=== PATIENT | male | born 2000 | race American Indian/Alaskan Native ===

== ENCOUNTER 2023-02-09 09:30 | Day surgery (SDC) | payer SELFPAY ==
[2023-02-09 09:51] LABS: Absolute Lymphocytes (CBC) 1.1 K/uL (0.7-4.9); Hematocrit 46.2 % (39.6-49.0); Lymphocytes % 8.9 % (15.3-44.8); MCV 86.6 fL (80-100); MPV 9.3 fL (7.6-11.3); RBC Red Blood Cell Count 5.34 M/uL (4.33-5.43)
[2023-02-09] MEDS ORDERED: NA CHLORIDE 0.9% 1,000 ML ONE ×3 (10:05→16:38)
[2023-02-09] MEDS ORDERED: DICYCLOMINE HCL 20 MG/2 ML AMP IM ONE (10:05)
[2023-02-09] MEDS ORDERED: ONDANSETRON 4 MG/2 ML VIAL ONE ×2 (10:05→14:31)
[2023-02-09] MEDS ORDERED: FAMOTIDINE 20 MG/2 ML VIAL IV ONE (10:05)
[2023-02-09 10:16] LABS: ALT/SGPT 79 U/L (16-61); AST/SGOT 23 U/L (15-37); Albumin 4.4 g/dL (3.4-5.0); Alkaline Phosphatase 130 U/L (45-117); BUN Blood Urea Nitrogen 13 mg/dL (7-18); Bicarbonate 23 mEq/L (21-32); Bilirubin Total 1.3 mg/dL (0.2-1.0); Glomerular Filtration Rate 100 ml/min (=/>90); Glucose Level 149 mg/dL (74-106); Lipase 35 U/L (13-75); Potassium 3.4 mEq/L (3.5-5.1); Protein, Total 8.1 g/dL (6.4-8.2); Sodium Level 135 mEq/L (136-145)
--- NOTE | 2023-02-09 10:18 | RAD REPORT ---
EXAM DESCRIPTION: CTAbdomen Pelvis W Contrast - 02/09/2023 10:09 am CLINICAL HISTORY: Abdominal pain. ABD PAIN COMPARISON: No comparisons TECHNIQUE: Biphasic CT imaging of the abdomen and pelvis was performed with 100 ml non-ionic IV cont rast. All CT scans are performed using dose optimization technique as appropriate and may include automated exposure control or mA/KV adjustment according to patient size. FINDINGS: The lung bases are clear. The liver demonstrates fatty liver. Spleen, pancreas, adrenal glands and kidneys are within normal li mits. No bowel obstruction, free air, free fluid or abscess. The appendix is dilated to 13 mm. No evidenc e of significant lymphadenopathy. No suspicious bony findings. IMPRESSION: The appendix appears fluid filled and dilated to 13 mm, suspicious for acute appendiciti s.
[2023-02-09 10:30] LABS: Barbiturates NEGATIVE (NEGATIVE); Benzodiazepines NEGATIVE (NEGATIVE); Cocaine NEGATIVE (NEGATIVE); METHAMPHETAM POSITIVE (NEGATIVE); Methadone NEGATIVE (NEGATIVE); Opiates NEGATIVE (NEGATIVE); Phencyclidine NEGATIVE (NEGATIVE); THC Cannibis POSITIVE (NEGATIVE)
--- NOTE | 2023-02-09 11:08 | ER ---
Nurse's Notes [facility] Name: Donell Mota Age: 22 yrs Sex: Male : 2000 Arrival Date: 02/09/2023 Time: 09:30 Bed 19 Private MD: Diagnosis: Unspecified acute appendicitis Presentation: 02/09 09:25 Chief complaint: EMS states: PATIENT CALLED EMS FOR ABD PAIN STARTED AT 0530 AND N/V. db DIARRHEA X1 YEST. METH USE MONDAY THROUGH MONDAY. 1 32 OZ BEER YESTERDAY. Coronavirus screen: Client denies travel out of the [place] in the last 14 days. At this time, the client does not indicate any symptoms associated with coronavirus-19. Ebola Screen: Patient negative for fever greater than or equal to 101.5 degrees Fahrenheit, and additional compatible Ebola Virus Disease symptoms Patient denies exposure to infectious person. Patient denies travel to an Ebola-affected area in the 21 days before illness onset. No symptoms or risks identified at this time. Initial Sepsis Screen: Does the patient meet any 2 criteria? No. Patient's initial sepsis screen is negative. Does the patient have a suspected source of infection? No. Patient's initial sepsis screen is negative. Risk Assessment: Do you want to hurt yourself or someone else? Patient reports no desire to harm self or others. Onset of symptoms was February 09, 2023. 09:25 Method Of Arrival: EMS: [facility] db 09:25 Acuity: ROSSY 3 db Triage Assessment: 09:39 General: Appears uncomfortable, Behavior is cooperative, anxious. Pain: Complains of db pain in abdomen. Neuro: Level of Consciousness is awake, alert, obeys commands, Oriented to person, place, time, situation. GI: Abdomen is flat, non-distended. : No deficits noted. No signs and/or symptoms were reported regarding the genitourinary system. Historical: - Allergies: 09:39 No Known Allergies; db - Home Meds: 09:39 None [Active]; db - PMHx: 09:39 None; db - Immunization history:: Adult Immunizations unknown. - Social history:: Smoking status: Patient denies any tobacco usage or history of. Patient uses alcohol, on a daily basis. admits to "couple of beers" a day. street drugs, marijuana, Methamphetamine (Meth). Screenin:[address] [facility] ED Fall Risk Assessment (Adult) History of falling in the last 3 months, db including since admission No falls in past 3 months (0 pts) Confusion or Disorientation No (0 pts) Intoxicated or Sedated No (0 pts) Impaired Gait No (0 pts) Mobility Assist Device Used No (0 pt) Altered Elimination No (0 pt) Score/Fall Risk Level 0 - 2 = Low Risk Oriented to surroundings, Maintained a safe environment. Abuse screen: Denies threats or abuse. Denies injuries from another. Nutritional screening: No deficits noted. Tuberculosis screening: No symptoms or risk factors identified. Assessment: 09:45 Reassessment: Patient appears in no apparent distress at this time. Patient and/or db family updated on plan of care and expected duration. Pain level reassessed. Patient is alert, oriented x 3, equal unlabored respirations, skin warm/dry/pink. General: Appears in no apparent distress. comfortable, Behavior is calm, cooperative. Neuro: Level of Consciousness is awake, alert, obeys commands, Oriented to person, place, time, situation. GI: Bowel sounds Abd is soft Abdomen is tender to palpation X 4 quads. Reports vomiting. 10:45 Reassessment: Patient appears in no apparent distress at this time. Patient and/or db family updated on plan of care and expected duration. Pain level reassessed. Patient states feeling better. Patient states symptoms have improved. 13:12 Reassessment: Patient appears in no apparent distress at this time. Patient and/or db family updated on plan of care and expected duration. Pain level reassessed. Patient is alert, oriented x 3, equal unlabored respirations, skin warm/dry/pink. Patient states feeling better. Patient states symptoms have improved. Vital Signs: 09:25 BP 154 / 88; Pulse 65; Resp 16; Temp 98.1(TE); Pulse Ox 100% ; Weight 70.31 kg; Height db 5 ft. 4 in. ; Pain 5/10; 09:30 BP 140 / 93; Pulse 70; Resp 16; Pulse Ox 100% on R/A; db 10:56 BP 133 / 101; Pulse 62; Resp 16; Pulse Ox 98% on R/A; db 12:40 BP 115 / 77; Pulse 44; Resp 16; Pulse Ox 99% on R/A; db 13:00 BP 122 / 76; Pulse 66; Resp 16; Pulse Ox 100% on R/A; db 09:25 Body Mass Index 26.61 (70.31 kg, 162.56 cm) db 09:25 Pain Scale: Adult db ED Course: 09:31 Patient arrived in ED. em1 09:31 Ramirez Carrasco NP is PHCP. pm1 09:31 Scott Hernandez DO is Attending Physician. pm1 09:35 Vianca Lares RN is Primary Nurse. db 09:39 Triage completed. db 09:39 Arm band placed on Patient placed in an exam room. db 10:05 Inserted saline lock: 20 gauge in right antecubital area, using aseptic technique. aw1 10:05 Initial lab(s) drawn, by me, sent to lab. aw1 10:05 Urine collected: clean catch specimen, lisa colored. aw1 10:11 CT Abd/Pelvis - IV Contrast Only In Process Unspecified. EDMS 11:05 Lorenzo Cárdenas is Hospitalizing Provider. pm1 13:13 Bed in low position. Call light in reach. Side rails up X 1. Provided Education on: db ADMISSION AND SURGERY. 13:13 No provider procedures requiring assistance completed. Patient admitted, IV remains in db place. Administered Medications: 09:50 Drug: NS 0.9% IV 1000 ml Route: IV; Rate: 1 bolus; Site: right antecubital; db 12:30 Follow up: IV Status: Completed infusion; IV Intake: 1000ml db 09:50 Drug: Dicyclomine IM 20 mg Route: IM; Site: right deltoid; db 12:45 Follow up: Response: No adverse reaction db 09:55 Drug: Famotidine IVP 20 mg Route: IVP; Site: right antecubital; db 13:15 Follow up: Response: No adverse reaction db 09:55 Drug: Ondansetron IVP 4 mg Route: IVP; Site: right antecubital; db 13:15 Follow up: Response: No adverse reaction db 09:55 CANCELLED (Patient not given previously ordered zofran yett): Ondansetron IVP 4 mg IVP pm1 once; over 2 minutes 11:45 Drug: Piperacillin-Tazobactam IVPB 3.375 grams Route: IVPB; Infused Over: 60 mins; db Site: right antecubital; 12:15 Follow up: IV Status: Completed infusion; IV Intake: 100ml db 11:53 Drug: NS 0.9% IV 1000 ml Route: IV; Rate: 100 ml/hr; Site: right antecubital; db 13:14 Follow up: IV Status: Infusion continued upon admission db Medication: 13:14 VIS not applicable for this client. db Intake: 12:15 IV: 100ml; Total: 100ml. db 12:30 IV: 1000ml; Total: 1100ml. db Outcome: 11:07 Decision to Hospitalize by Provider. pm1 13:13 Admitted to OR accompanied by nurse, via wheelchair, with chart. db 13:13 Condition: stable 13:13 Instructed on the need for admit. 13:14 Patient left the ED. db Signatures: Dispatcher [employer] Johnnie Kinney em1 Ramirez Carrasco, DIE CAST SUPERVISOR DIE CAST SUPERVISOR pm1 Vianca Lares, MIGUEL A RN db Hyacinth Mckeon aw1 Corrections: (The following items were deleted from the chart) 13:12 10:45 Reassessment: Patient appears in no apparent distress at this time. Patient db and/or family updated on plan of care and expected duration. Pain level reassessed. Patient is alert, oriented x 3, equal unlabored respirations, skin warm/dry/pink. Patient states feeling better. Patient states symptoms have improved. db
--- NOTE | 2023-02-09 11:08 | EDPHYS ---
Physician Documentation [facility] Name: Donell Mota Age: 22 yrs Sex: Male : 2000 Arrival Date: 02/09/2023 Time: 09:30 Bed 19 Private MD: ED Physician Scott Hernandez HPI: 02/09 09:47 This 22 yrs old Male presents to ER via EMS with complaints of Abdominal Pain, pm1 Nausea/Vomiting/Diarrhea. 09:47 The patient presents with abdominal pain in the periumbilical area. Onset: The pm1 symptoms/episode began/occurred this morning, at 05:30. The symptoms do not radiate. Associated signs and symptoms: Pertinent positives: nausea, vomiting, and diarrhea, Pertinent negatives: chest pain, dysuria, fever, shortness of breath. The symptoms are described as sharp. Modifying factors: The symptoms are alleviated by nothing, the symptoms are aggravated by nothing. Severity of pain: in the emergency department the pain is actually worse. The patient has not experienced similar symptoms in the past. The patient has not recently seen a physician. Patient has been using methampthamines for the past three days. Diarrhea present yesterday. Nausea vomiting onset today at 0530, contents bilous. Has not been eating and drinking well since using drugs this week. Patient last ETOH consumption yesterday, one beer. 09:47 Patient does not drink every day. No history of alcohol withdrawl. pm1 Historical: - Allergies: 09:39 No Known Allergies; db - Home Meds: 09:39 None [Active]; db - PMHx: 09:39 None; db - Immunization history:: Adult Immunizations unknown. - Social history:: Smoking status: Patient denies any tobacco usage or history of. Patient uses alcohol, on a daily basis. admits to "couple of beers" a day. street drugs, marijuana, Methamphetamine (Meth). ROS: 09:47 Constitutional: Negative for fever, chills, and weight loss, Cardiovascular: Negative pm1 for chest pain, palpitations, and edema, Respiratory: Negative for shortness of breath, cough, wheezing, and pleuritic chest pain. 09:47 Back: Negative for injury and pain, : Negative for injury, bleeding, discharge, and swelling, MS/Extremity: Negative for injury and deformity, Skin: Negative for injury, rash, and discoloration, Neuro: Negative for headache, weakness, numbness, tingling, and seizure. 09:47 Abdomen/GI: Positive for abdominal pain, nausea, vomiting, and diarrhea, Negative for constipation. 09:47 All other systems are negative. Exam: 09:47 Constitutional: This is a well developed, well nourished patient who is awake, alert, pm1 and in no acute distress. Head/Face: Normocephalic, atraumatic. 09:47 Back: No spinal tenderness. No costovertebral tenderness. Full range of motion. Skin: Warm, dry with normal turgor. Normal color with no rashes, no lesions, and no evidence of cellulitis. MS/ Extremity: Pulses equal, no cyanosis. Neurovascular intact. Full, normal range of motion. 09:47 Cardiovascular: Exam negative for acute changes, Rate: normal, Rhythm: regular, Pulses: no pulse deficits are appreciated. 09:47 Respiratory: Exam negative for acute changes, respiratory distress, shortness of breath. 09:47 Abdomen/GI: Inspection: obese Palpation: soft, in all quadrants, mild abdominal tenderness, in the left lower quadrant. 09:47 Neuro: Exam negative for acute changes, Orientation: is normal, Mentation: is normal, Motor: is normal, moves all fours. Vital Signs: 09:25 BP 154 / 88; Pulse 65; Resp 16; Temp 98.1(TE); Pulse Ox 100% ; Weight 70.31 kg; Height db 5 ft. 4 in. ; Pain 5/10; 09:30 BP 140 / 93; Pulse 70; Resp 16; Pulse Ox 100% on R/A; db 10:56 BP 133 / 101; Pulse 62; Resp 16; Pulse Ox 98% on R/A; db 12:40 BP 115 / 77; Pulse 44; Resp 16; Pulse Ox 99% on R/A; db 13:00 BP 122 / 76; Pulse 66; Resp 16; Pulse Ox 100% on R/A; db 09:25 Body Mass Index 26.61 (70.31 kg, 162.56 cm) db 09:25 Pain Scale: Adult db MDM: 09:32 Patient medically screened. pm1 09:53 Data reviewed: vital signs. pm1 10:28 I considered the following discharge prescriptions or medication management in the pm1 emergency department Medications were administered in the Emergency Department. See SEP. 10:28 Historians other than the Patient: EMS: Regarding drug abuse history, presentation of pm1 illness and symptoms at scene . 10:32 Counseling: I had a detailed discussion with the patient and/or guardian regarding: the pm1 historical points, exam findings, and any diagnostic results supporting the discharge/admit diagnosis, lab results, radiology results, the need for further work-up and treatment in the hospital. 11:03 Management of patient was discussed with the following: Regulatory And Compliance Technician: Dr Graham. NPO, pm1 antibiotics and admit to hospitalist. 11:03 Care significantly affected by the following chronic conditions: drug abuse. pm1 11:03 Care significantly affected by the following Social Determinants of Health: Poor access pm1 to healthcare and/or lack of insurance. 11:10 ED course: Patient's pain improved with medication given in the ER but reports still pm1 present in the umbilical area. 11:10 Differential diagnosis: appendicitis, cholecystitis, Cholelithiasis, non-specific abd pm1 pain, pancreatitis, drug abuse. 11:12 Management of patient was discussed with the following: Hospitalist: Dr Cárdenas. Will pm1 see the patient. 02/09 09:33 Order name: CBC with Diff; Complete Time: 09:53 pm02/09 09:33 Order name: CMP; Complete Time: 10:33 pm02/09 09:33 Order name: Lipase; Complete Time: 10:33 pm02/09 09:33 Order name: Acetaminophen; Complete Time: 10:33 pm02/09 09:33 Order name: ETOH Level; Complete Time: 10:10 pm02/09 09:33 Order name: Salicylate; Complete Time: 10:33 pm02/09 09:33 Order name: Urine Drug Screen; Complete Time: 10:31 pm02/09 09:33 Order name: CT Abd/Pelvis - IV Contrast Only; Complete Time: 10:20 pm02/09 09:33 Order name: IV Saline Lock; Complete Time: 10:05 pm02/09 09:33 Order name: Labs collected and sent; Complete Time: 10:05 pm02/09 11:15 Order name: NPO; Complete Time: 11:53 pm1 Administered Medications: 09:50 Drug: NS 0.9% IV 1000 ml Route: IV; Rate: 1 bolus; Site: right antecubital; db 12:30 Follow up: IV Status: Completed infusion; IV Intake: 1000ml db 09:50 Drug: Dicyclomine IM 20 mg Route: IM; Site: right deltoid; db 12:45 Follow up: Response: No adverse reaction db 09:55 Drug: Famotidine IVP 20 mg Route: IVP; Site: right antecubital; db 13:15 Follow up: Response: No adverse reaction db 09:55 Drug: Ondansetron IVP 4 mg Route: IVP; Site: right antecubital; db 13:15 Follow up: Response: No adverse reaction db 09:55 CANCELLED (Patient not given previously ordered zofran yett): Ondansetron IVP 4 mg IVP pm1 once; over 2 minutes 11:45 Drug: Piperacillin-Tazobactam IVPB 3.375 grams Route: IVPB; Infused Over: 60 mins; db Site: right antecubital; 12:15 Follow up: IV Status: Completed infusion; IV Intake: 100ml db 11:53 Drug: NS 0.9% IV 1000 ml Route: IV; Rate: 100 ml/hr; Site: right antecubital; db 13:14 Follow up: IV Status: Infusion continued upon admission db Disposition: 09:48 PA/AUTOMOTIVE GLAZIER's history reviewed, patient interviewed, and examined. HPI: 22-year-old male with ms3 no past medical history presents via [facility] for abdominal pain that began this morning. Patient states he has had multiple episodes of emesis. Patient notes he had diarrhea that began yesterday. Patient denies alleviating or inciting factors My personal exam of patient reveals: On exam patient is alert and oriented x4, in no apparent distress, nontoxic-appearing. Heart rate and rhythm are regular without murmurs rubs or gallops. Lungs are clear to auscultation bilaterally. Abdomen is nontender to palpation with bowel sounds present. Skin is dry and without rashes. 11:15 Co-signature as Attending Physician, Scott Hernandez DO I reviewed the patient's care ms3 provided by Advanced Practice Provider \\T\\ agree w/ the diagnosis \\T\\ care plan. I personally saw the pt \\T\\ performed a substantive portion of the visit, incldng all aspects of the (History/Exam/Medical Decision Making). Disposition Summary: 02/09/23 11:07 Hospitalization Ordered Hospitalization Status: Inpatient Admission pm1 Provider: Lorenzo Cárdenas pm1 [facility] pm1 Condition: Stable pm1 Problem: new pm1 Symptoms: have improved pm1 Bed/Room Type: Standard pm1 Room Assignment: pm1 Diagnosis - Unspecified acute appendicitis pm1 Forms: - Medication Reconciliation Form pm1 - SBAR form pm1 Signatures: Dispatcher [employer] EDMS Ramirez Carrasco, TAYLOR AUTOMOTIVE GLAZIER pm1 Scott Hernandez DO DO ms3 Vianca Lares, RN RN db Corrections: (The following items were deleted from the chart) 09:55 09:54 Ondansetron IVP 4 mg IVP once; over 2 minutes ordered. 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 pm1
[2023-02-09] MEDS ORDERED: PIPERACIL/TAZO 3.375 GM VIAL IV ONE (11:47)
[2023-02-09] MEDS ORDERED: NA CHLORIDE 0.9% 100 ML ONE (11:47)
[2023-02-09] MEDS ORDERED: BUPIVACAINE 0.5% PF 10 ML VIAL ONE (14:25)
--- NOTE | 2023-02-09 14:26 | P.CNS ---
Date of Consult: 02/09/23 Reason for consult: Abdominal pain History of present illness: Patient is a 22-year-old gentleman with acute onset of epigastric abdominal pain radiating to the lower abdomen associated with nausea and vomiting as well as anorexia. Patient denies diarrhea, constipation or blood per rectum. Patient denies dysuria hematuria. Patient does admit to using marijuana and methamphetamine as recently as yesterday. Patient denies sore throat, runny nose, cough, headaches, dizziness, chest pain, fever or chills. Review of systems: Otherwise unremarkable Past medical history: Negative Past surgical history: Negative Allergies: Negative Social history: Patient uses methamphetamine, marijuana and alcohol Family history: Noncontributory Vital signs: Stable, afebrile Physical exam: Awake, alert oriented x3 Head and neck exam: No masses Chest: Clear Heart: S1-S2 Abdomen: Soft, nondistended, positive bowel sounds, minimal tenderness right lower quadrant with no rebound, rigidity or guarding Extremity: No neurovascular intact, nontender Neuro: Nonfocal Diagnostic data: White count is 11.8. CT of the abdomen pelvis shows a appendix almost 13 mm in diameter fluid-filled and suspicious for acute appendicitis. Assessment: Acute appendicitis and substance abuse Plan/recommendation: Admit, n.p.o., IV fluid, IV antibiotics and to the OR for laparoscopic appendectomy possible open. Patient understands risks, benefits and alternatives and agrees to procedure. CC:
[2023-02-09] MEDS ORDERED: MIDAZOLAM HCL 2 MG/2 ML INJ ONE (14:31)
[2023-02-09] MEDS ORDERED: dexAMETHasone 4 MG/ML VIAL ONE (14:31)
[2023-02-09] MEDS ORDERED: FENTANYL CITR 100 MCG/2 ML ONE (14:31)
[2023-02-09] MEDS ORDERED: propofoL 200 MG/20 ML VIAL IV ONE (14:31)
[2023-02-09] MEDS ORDERED: ROCURONIUM 50 MG/5 ML VIAL IV ONE (14:31)
[2023-02-09] MEDS ORDERED: CEFOXITIN SODIUM 1 GM/VIAL ONE (14:31)
[2023-02-09] MEDS ORDERED: LIDOCAINE 1% MPF 2 ML AMPULE ONE (14:31)
[2023-02-09] MEDS ORDERED: ONDANSETRON 4 MG/2 ML VIAL IV PRN (14:49)
[2023-02-09] MEDS ORDERED: MORPHINE 2 MG/ML SYR IV PRN (14:49)
[2023-02-09] MEDS ORDERED: ACETAMINOPHEN 500 MG TAB PO PRN (14:49)
[2023-02-09] MEDS ORDERED: NA CHLORIDE 0.9% 1,000 ML IV SCH (15:00)
--- NOTE | 2023-02-09 15:02 | P.HP ---
Certification for Inpatient Patient admitted to: Observation With expected LOS: <2 Midnights Practitioner: I am a practitioner with admitting privileges, knowledge of patient current condition, hospital course, and medical plan of care. Services: Services provided to patient in accordance with Admission requirements found in Title 42 Section 412.3 of the Code of Federal Regulations Patient History Date of Service: 02/09/23 Reason for admission: Abdominal pain History of Present Illness: 22-year-old with a history of drug abuse presented to the emergency department with a complaint of abdominal pain off onset 3 hours prior to presentation. Patient reported severe periumbilical pain, nonradiating, associated with vomiting. He denied any diarrhea or constipation. He denied any fever. Work- up in the emergency department showed dilated appendix concerning for appendicitis. General surgery Dr. Graham was contacted who recommended hospitalization for further evaluation. Of note patient's urine toxicology screen is positive for THC and amphetamine. Allergies No Known Allergies Allergy (Verified 02/09/23 13:15) - Past Medical/Surgical History -: None -: none - Family History Family History: Reviewed- Non-Contributory - Family History No known medical history in the family History Unknown: Yes - Social History Alcohol use: Yes CD- Drugs: Yes Place of Residence: Home Review of Systems Other: Patient denied any shortness of breath, or chest pain. He denied any cough Except as documented, all other systems reviewed and negative. Physical Examination - Vital Signs Blood Pressure: 122/76 Pulse: 66 Respirations: 16 - Physical Exam General: Alert, In no apparent distress, Oriented x3 HEENT: Atraumatic, Normocephalic, Mucous membr. moist/pink, EOMI, Sclerae nonicteric Neck: Supple, JVD not distended Respiratory: Clear to auscultation bilaterally, Normal air movement Cardiovascular: No edema, Regular rate/rhythm, Normal S1 S2, No murmurs Capillary refill: <2 Seconds Gastrointestinal: Normal bowel sounds, Non-distended, Tenderness Musculoskeletal: No swelling, No tenderness Integumentary: No rashes, No cyanosis Neurological: Normal speech, Normal strength at 5/5 x4 extr, Cranial nerves 3-12 intact Lymphatics: No axilla or inguinal lymphadenopathy - Studies Laboratory Data (last 24 hrs) 02/09/23 09:40: Sodium 135 L, Potassium 3.4 L, BUN 13, Creatinine 1.07, Glucose 149 H, Total Bilirubin 1.3 H, AST 23, ALT 79 H, Alkaline Phosphatase 130 H, Lipase 35 02/09/23 09:40: WBC 11.80 H, Hgb 15.8, Hct 46.2, Plt Count 258 Assessment and Plan - Problems (Diagnosis) (1) Acute appendicitis Current Visit: Yes Status: Acute - Plan Place under observation on the medical floor. General surgery Dr. Graham consulted. Dr. Graham is planning lap appendectomy. Empiric IV Zosyn Pain management as needed Hydrate with IV normal saline. Monitor electrolytes and CBC. Time Spent Managing Pts Care (In Minutes): 65
[2023-02-09] MEDS ORDERED: KETOROLAC 30 MG/ML INJ ONE (15:34)
[2023-02-09] MEDS ORDERED: GLYCOPYRROLATE 0.2 MG/ML SYR ONE (15:41)
[2023-02-09] MEDS ORDERED: NEOSTIGMINE 1 MG/ML -10 ML VIAL ONE (15:42)
[2023-02-09] MEDS ORDERED: EPINEPHRINE INH 0.5 ML VIAL IH ONE (16:03)
--- NOTE | 2023-02-09 16:23 | P.DS ---
Admission Date: 02/09/23 Discharge Date: 02/09/23 Disposition: ROUTINE DISCHARGE Discharge Condition: FAIR Reason for Admission: Abdominal pain - Problems (1) Acute appendicitis Current Visit: Yes Status: Acute Brief History of Present Illness: 22-year-old with a history of drug abuse presented to the emergency department with a complaint of abdominal pain off onset 3 hours prior to presentation. Patient reported severe periumbilical pain, nonradiating, associated with vomiting. He denied any diarrhea or constipation. He denied any fever. Work- up in the emergency department showed dilated appendix concerning for appendicitis. General surgery Dr. Graham was contacted who recommended hospitalization for further evaluation. Of note patient's urine toxicology screen is positive for THC and amphetamine. Hospital Course: Patient placed on observation on the medical floor. He was seen and evaluated by Dr. Simpson who performed lap appendectomy. Surgery was uneventful. Patient is stable postop. He is cleared for discharge by General surgery. Vitals are stable for discharge. Dr. Graham offered to prescribe patient's outpatient antibiotics and pain medications. Vital Signs/Physical Exam: Temp Pulse Resp BP Pulse Ox 97.8 F 79 18 113/61 02/09/23 15:48 02/09/23 16:08 02/09/23 16:08 02/09/23 16:08 General: Alert, In no apparent distress, Oriented x3 HEENT: Mucous membr. moist/pink Neck: JVD not distended Respiratory: Clear to auscultation bilaterally, Normal air movement Cardiovascular: No edema, Regular rate/rhythm Gastrointestinal: Normal bowel sounds, Non-distended Laboratory Data at Discharge: WBC 11.80 thou/uL (4.3-10.9) H 02/09/23 09:40 Hgb 15.8 g/dL (13.6-17.9) 02/09/23 09:40 Hct 46.2 % (39.6-49.0) 02/09/23 09:40 Plt Count 258 thou/uL (152-406) 02/09/23 09:40 Sodium 135 mEq/L (136-145) L 02/09/23 09:40 Potassium 3.4 mEq/L (3.5-5.1) L 02/09/23 09:40 BUN 13 mg/dL (7-18) 02/09/23 09:40 Creatinine 1.07 mg/dL (0.70-1.30) 02/09/23 09:40 Glucose 149 mg/dL (74-106) H 02/09/23 09:40 Total Bilirubin 1.3 mg/dL (0.2-1.0) H 02/09/23 09:40 AST 23 U/L (15-37) 02/09/23 09:40 ALT 79 U/L (16-61) H 02/09/23 09:40 Alkaline Phosphatase 130 U/L (45-117) H 02/09/23 09:40 Lipase 35 U/L (13-75) 02/09/23 09:40 Diet: Regular Followup: NONE,NONE [Primary Care Provider] - Carl Graham MD [ACTIVE - CAN ADMIT] - 1-2 Weeks Time spent managing pt's care (in minutes): 24
--- NOTE | 2023-02-09 16:39 | P.OP ---
Date of Service: 02/09/23 Preop diagnosis: Acute appendicitis Postop diagnosis: Same Procedure performed: Laparoscopic appendectomy Surgeon: Carl Graham MD Escalation Engineer: None Estimated blood loss: Minimal Specimen: Appendix Findings: As above Anesthesia: General Complications: None none Drains: None Fluids and blood products: Nonapplicable Disposition: Recovery room Operative note: Patient brought to the OR and placed in supine position. General anesthesia begun. Patient prepped and draped in the usual sterile fashion. Marcaine 0.5% infiltrated locally. 15 blade used to make a 1 cm supraumbilical midline incision. Subcutaneous tissue divided. Bleeding controlled with cautery. Fascia identified and divided. #1 Vicryl stay suture placed. Peritoneal cavity entered with sharp and blunt dissection. 12 mm trocar placed into the peritoneal cavity under direct vision. Pneumoperitoneum established. Two 5 mm trocars placed. 1 trocar placed in the suprapubic region under direct vision and another placed in the left lower quadrant under direct vision. Laparoscopy revealed acute uncomplicated appendicitis with dilatation, mild suppuration and injection of blood vessel. Endo SHERYL stapling device used to divide the mesoappendix and base of the appendix on the cecum. Entire appendix removed and sent to pathology as specimen. Right lower quadrant irrigated effluent clear no evidence of bleeding of the bowel injury appreciated. Subsequently all trocars removed under direct vision. Stay sutures tied to each other to reapproximate the fascial defect. Subcutaneous was irrigated and bleeding controlled cautery. 3-0 chromic used to approximate subcutaneous tissue. Staple used to close skin. Sterile dressing applied and patient awakened. Patient taken to recovery room in good general condition. CC:
[2023-02-09] MEDS ORDERED: PIPER TAZO 3.375 GM in NA CHLORIDE 0.9% 100 ML IV SCH (17:00)
[2023-02-09 18:39] VITALS: BP 115/52; TEMP 97.8; O2SAT 100
== END 2023-02-09 18:04 | disposition home or self-care (01) ==
LOC: ER 09:30 → UNDOADMOB 14:47 → ERHOLD 14:47 → 2ND 16:01 → DS 18:00
PROVIDERS: ATTEND Surgery
PROC: 0DTJ4ZZ Resection of Appendix, Percutaneous Endoscopic Approach (ICD-10-PCS; principal; 2023-02-09 14:15)
DX: K37 Unspecified appendicitis (principal); R10.9 Unspecified abdominal pain
CPT/HCPCS: 36415; 74177; 80053; 80143; 80179; 80307; 82077; 83690; 85025; 88304; 96361; 96365; 96372; 96375; 99285; J0500; J0694; J1100; J2250; J2405; J2543; J2704; J2710; J3010; J7030; Q9967